=== PATIENT | male | born 1975 | race Caucasian/White ===

== ENCOUNTER 2016-12-24 05:25 | Observation (INO) | payer MEDICARE, OTHER ==
--- NOTE | ~2016-12-24 | DS ---
Discharge Summary [id number] [place]. [address] NAME: BOBBY RAO : 73 STATUS : DIS Osmar PAT#: [id number] AGE: 41 ADM/REG DATE : 12/24/16 MR#: [id number] REPORT SERV DATE: 12/26/16 DICTATED BY: ZOIE DAVIS DATE: 12/25/16 REPORT STATUS : Draft TRANSCRIBED BY: IKER DATE: 12/25/16 ADMISSION DATE: 12/24/2016 DISCHARGE DATE: 12/25/2016 DISCHARGE DIAGNOSES: 1. Acute hepatic encephalopathy. 2. Cirrhosis of the liver. 3. Alpha-1 antitrypsin deficiency. 4. Major depression. 5. Chronic pain syndrome. CONSULTANTS DURING THIS HOSPITALIZATION: Dr. Dino Stevens of Psychiatry. INVASIVE PROCEDURES DONE DURING THIS HOSPITALIZATION: None. BRIEF HISTORY OF PRESENT ILLNESS: The patient is a 41-year-old white male with an unfortunate diagnosis of alpha-1 antitrypsin deficiency, was admitted yesterday for hepatic encephalopathy and lethargy. For detailed history and physical exam, please see H and P dictated by Dr. Dale Baptiste on 12/24/2016. HOSPITAL COURSE: After being admitted to the hospital, this patient was placed in the CDU. He was given lactulose. His ammonia level has improved down to 78. He is fully awake, alert, and oriented. Because of his overall situation and his end-stage liver disease, Dr. Baptiste had thought that he would be a best candidate for hospice. Hospice was consulted. The patient was seen by Hospice and the hospice philosophy was explained to the patient. After discussing with his family, the patient has decided that he wants to enroll in hospice for his diagnosis of cirrhosis and alpha-1 antit[address] Dr. Stevens saw the patient in consultation and recommended restarting his Effexor for his major depression. No other recommendations were made. He remained stable otherwise and is being discharged in stable condition. DISCHARGE DISPOSITION: Home with hospice. DISCHARGE ACTIVITY: As tolerated. DISCHARGED DIET: Low-protein diet. DISCHARGE MEDICATIONS: Will be deferred to hospice. DISCHARGE FOLLOWUP: Will be by [facility] in the home setting. JANETH/IKER [facility] Discharge Summary [address] [address] NAME: BOBBY RAO : 73 STATUS : DIS Osmar PAT#: [id number] AGE: 41 ADM/REG DATE : 12/24/16 MR#: [id number] REPORT SERV DATE: 12/26/16 DICTATED BY: ZOIE DAVIS DATE: 12/25/16 REPORT STATUS : Draft TRANSCRIBED BY: MODL DATE: 12/25/16 Mervat Davis / [id number] CC: Michael Glez [facility]
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
--- NOTE | ~2016-12-24 | CN ---
Consultation Report [facility] [address] [place]. [address] NAME: BOBBY RAO : 73 STATUS : ADM Osmar PAT#: [id number] AGE: 41 ADM/REG DATE : 12/24/16 MR#: [id number] REPORT SERV DATE: 12/24/16 DICTATED BY: CAM JOSE DATE: 12/24/16 REPORT STATUS : Draft TRANSCRIBED BY: MODL DATE: 12/24/16 PSYCHIATRIC CONSULTATION DATE OF CONSULTATION: 12/24/2016 I reviewed this patient's medical record. I discussed the patient's status with Dr. Baptiste. HISTORY OF PRESENT ILLNESS: He was admitted with advanced cirrhosis, slowed mentation, and lethargy. I was asked to address depression. PAST PSYCHIATRIC HISTORY: He was started on Effexor over 15 years ago by a physician who was on the liver transplant team at [place]. He feels this medication is very helpful. When he stopped it while he was in retirement a few years ago, he became increasingly labile, with easily provoked crying. He feels the medication lessens the lability. SOCIAL HISTORY: He lives with a friend whom he regards as his uncle. This is an older male who was been good to him over the years. He recently his of over 20 years. She was a drug addict. He is somewhat estranged from his family. 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 FAMILY HISTORY: He reports that a sister, niece, and possibly other family members suffered from depression. MENTAL STATUS: He was sitting up, eating lunch. He was cooperative in attitude. His mood was sad, but in spite of that, he was still able to express humor and to occasionally smile. His affect was labile, with brief episodes of tearfulness. His thinking was somewhat slowed. His thinking, however, was logical. He had no delusions. He had no hallucinations. He was oriented to "November"-"toward the end"-"2016"-""-"[facility]." DIAGNOSES: 1. Hepatic encephalopathy. 2. Depressive disorder, not otherwise specified. RECOMMENDATIONS: We should continue his home Effexor, which was Effexor XR 150 mg daily. He appears to be able to tolerate this dose level, even with his severe hepatic impairment. I will sign off. DK/MODL Cam Jose M.D. Consultation Report [address] [address] NAME: BOBBY RAO : 73 STATUS : ADM Osmar PAT#: [id number] AGE: 41 ADM/REG DATE : 12/24/16 MR#: [id number] REPORT SERV DATE: 12/24/16 DICTATED BY: CAM JOSE DATE: 12/24/16 REPORT STATUS : Draft TRANSCRIBED BY: FORTINOL DATE: 12/24/16 / [id number] CC: Skyler Meek M.D.
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
[~2016-12-24 05:25] MED LIST: BP MEDICATION; EFFEX37.5 PO; LACTULOSE; NEXIUM40 PO; PR25 PO
[2016-12-24 06:16] LABS: BASOPHILS 0.4 %; BASOPHILS ABSOLUTE 0.02 10/3/uL (0.0-0.16); EOSINOPHILS 6.7 %; EOSINOPHILS ABSOLUTE 0.31 10/3/uL (0.0-0.53); HEMATOCRIT 31.9 % (40.0-51.0); HEMOGLOBIN 11.1 g/dL (13.6-17.8); IMMATURE GRANULOCYTES 0.2 %; IMMATURE GRANULOCYTES ABSOLUTE 0.01 10/3/uL (0.0-0.11); LYMPHOCYTES 18.4 %; LYMPHOCYTES ABSOLUTE 0.85 10/3/uL (0.67-4.30); MANUAL DIFF NO %; MEAN CORPUS HGB CONC 34.8 g/dL (32.0-36.0); MEAN CORPUSCULAR HEMOGLOB 30.9 pg (26.0-34.0); MEAN CORPUSCULAR VOLUME 88.9 fL (80-100); MEAN PLATELET VOLUME 9.7 fL (9.2-13.0); MONOCYTES 15.4 %; MONOCYTES ABSOLUTE 0.71 10/3/uL (0.21-1.20); NEUTROPHILS 58.9 %; NEUTROPHILS ABSOLUTE 2.71 10/3/uL (2.02-8.40); PLATELET COUNT 60 10/3/uL (150-400); RED CELL COUNT 3.59 10/6/uL (4.7-6.1); WHITE BLOOD CELLS 4.6 10/3/uL (4.5-10.5)
[2016-12-24 06:38] LABS: A/G RATIO 0.6 (0.7-1.9); ALBUMIN 2.5 G/DL (3.5-5.0); ALKALINE PHOSPHATASE 155 U/L (45-117); BUN (BLOOD UREA NITROGEN) 12 MG/DL (6-23); CALCIUM, SERUM 8.2 MG/DL (8.5-10.4); CHLORIDE, SERUM 106 MMOL/L (96-112); CO2 (CARBON DIOXIDE) 24 MMOL/L (24-34); GFR AFRICAN AMERICAN 122 ML/MIN (>=60); GFR NON AFRICAN AMERICAN 105 ML/MIN (>=60); GLOBULIN 4.3 G/DL (2.5-4.1); GLUCOSE, SERUM 104 MG/DL (60-99); POTASSIUM, SERUM 3.5 MMOL/L (3.5-5.3); SGOT(AST) 73 U/L (5-40); SGPT(ALT) 69 U/L (5-65); SODIUM, SERUM 139 MMOL/L (135-148); TOTAL PROTEIN 6.8 G/DL (6.0-8.5)
[2016-12-24 06:48] LABS: PLATELET ESTIMATE DEC (ADEQUATE); RBC MORPHOLOGY NORM (NORMAL)
[2016-12-24] MEDS ORDERED: NEUR600 PO (07:50)
[2016-12-24] MEDS ORDERED: NEUR300 PO (07:50)
[2016-12-24] MEDS ORDERED: EFFEXOR XR150 MG PO (07:50)
[2016-12-24] MEDS ORDERED: L40 PO (07:51)
[2016-12-24] MEDS ORDERED: LISINOPRIL40 MG PO (07:51)
[2016-12-24] MEDS ORDERED: CONSTULOSE PO (07:51)
[2016-12-24] MEDS ORDERED: OXYCOD PO (07:52)
[2016-12-24] MEDS ORDERED: HABIT14 TOP (07:52)
[2016-12-24] MEDS ORDERED: NEXIUM40 PO (07:52)
[2016-12-24] MEDS ORDERED: HYDROCHLOROT25 MG PO (07:53)
[2016-12-24] MEDS ORDERED: NEOSPORIN OPH S10 ML OPH (07:53)
[2016-12-24] MEDS ORDERED: SPIR100 PO (07:53)
[2016-12-24 11:01] LABS: ASCORBIC ACID (UR NOT ORDER) NEG (NEG); BILIRUBIN, URINE NEGATIVE (NEG); ER URINALYSIS TAT 0 Hrs 08 Mins; KETONE, URINE NEGATIVE (NEG); LEUKOCYTE ESTERASE(NOT OR NEG (NEG); NITRITE (URINE) NEG (NEG); WBC (NOT ORDERED) (RFLEX) < 1 (0-5)
[2016-12-24 11:17] LABS: AMPHETAMINES (NOT ORD) NEG (NEG); BARBITURATES (NOT ORDERED NEG (NEG); BENZODIAZEPINES (NOT ORD) NEG (NEG); CANNABINOIDS (THC) NEG (NEG); COCAINE (NOT ORDERED) NEG (NEG); OPIATES NEG (NEG); PHENCYCLIDINE(PCP) NEG (NEG); TRICYCLICS NEG (NEG)
[2016-12-24 15:04] LABS: HEMATOCRIT 32.3 % (40.0-51.0); HEMOGLOBIN 11.1 g/dL (13.6-17.8)
[2016-12-24 21:38] LABS: HEMOGLOBIN 10.5 g/dL (13.6-17.8)
[2016-12-25 04:53] LABS: BUN (BLOOD UREA NITROGEN) 12 MG/DL (6-23); CALCIUM, SERUM 8.2 MG/DL (8.5-10.4); CHLORIDE, SERUM 109 MMOL/L (96-112); CO2 (CARBON DIOXIDE) 26 MMOL/L (24-34); CREATININE 0.75 MG/DL (0.70-1.30); GFR AFRICAN AMERICAN 131 ML/MIN (>=60); GFR NON AFRICAN AMERICAN 113 ML/MIN (>=60); GLUCOSE, SERUM 85 MG/DL (60-99); SODIUM, SERUM 141 MMOL/L (135-148)
[2016-12-25 08:24] LABS: HEMATOCRIT 34.4 % (40.0-51.0); HEMOGLOBIN 11.6 g/dL (13.6-17.8)
== END 2016-12-25 15:23 | disposition home or self-care (01) ==
LOC: ER 05:25 → CDU1 10:43
PROVIDERS: Emergency Medicine; Hospitalist; Internal Medicine
DX: K72.90 Hepatic failure, unspecified without coma (principal); K74.60 Unspecified cirrhosis of liver; E88.01 Alpha-1-antitrypsin deficiency; F32.9 Major depressive disorder, single episode, unspecified; G89.4 Chronic pain syndrome; I85.00 Esophageal varices without bleeding; I10 Essential (primary) hypertension; E55.9 Vitamin D deficiency, unspecified; K59.00 Constipation, unspecified; Z91.81 History of falling; Z79.899 Other long term (current) drug therapy; Z88.6 Allergy status to analgesic agent; Z94.4 Liver transplant status; Z88.8 Allergy status to other drugs, medicaments and biological substances
CPT/HCPCS: 74176; 80048; 80053; 80305; 81001; 82140; 82306; 83690; 85014; 85018; 85025; 93005; 96374; 99285; A9270-GY; G0378